=== PATIENT | male | born 1995 | race Caucasian/White ===

== ENCOUNTER 2017-09-20 20:54 | Observation (INO) | payer BC, SELFPAY ==
[2017-09-20 20:57] VITALS: BP 122/65; PULSE 91; RESP 17; TEMP 37.4; O2SAT 98; BMI 19.1
--- NOTE | 2017-09-20 21:30 | CT_ITS ---
STUDY: CT ABDOMEN AND PELVIS WITH CONTRAST REASON FOR EXAM: Male, 21 years old. Right lower quadrant pain RADIATION DOSAGE (If Supplied By Facility): CTDIvol = ( 11.17 ) mGy, DLP = ( 482.70 ) mGycm TECHNIQUE: Transaxial images were obtained from the dome of the diaphragm to the symphysis pubis with oral contrast. 100ML ml of Isovue 300 contrast was administered. Sagittal and coronal images were reconstructed. Individualized dose optimization techniques were used for this CT. COMPARISON: None. FINDINGS: The visualized lung bases are unremarkable. The visualized portions of the heart are within normal limits. Normal liver. Normal gallbladder and extrahepatic biliary system. Normal spleen. Normal pancreas. Normal bilateral adrenal glands. Normal right kidney. Normal left kidney. There is contrast in the stomach. There are mildly distended loops of small bowel within the right lower quadrant. There is a fluid distended appearance of the colon with air-fluid levels. There is mild wall thickening minimal mucosal enhancement of the ascending colon. As a decompressed mildly thick-walled appearance of the rectosigmoid junction. There is a rounded fluid filled appearance of the bowel in the right lower quadrant. The appendix is not seen with certainty. Normal abdominal aorta. Normal inferior vena cava. Normal retroperitoneum. Normal urinary bladder. Normal visualized prostate gland. Normal abdominal wall. Normal osseous structures. CT/Abdomen/Pelvis WITH Contrast IMPRESSION: There is a pattern of fluid filled distended loops of small and large bowel relatively mucosal enhancement in the ascending colon, raising concern for enterocolitis. There is no significant visualized free fluid or inflammation particularly in the right lower quadrant. The appendix is not visualized. No visualized hydronephrosis. Electronically Signed: Marlene Schmid MD at 23:45 EDT Tel , Service support ,
[2017-09-20 21:37] LABS: Bacteria 0 SEEN /hpf (None Seen); Mucous, Urine 0 SEEN /hpf (<or=2+); Red Blood Cells-Urine 0 SEEN /hpf (0-5); Squamous Epithelial Cells - UA 0 SEEN /hpf (0-5); White Blood Cells 0 SEEN /hpf (0-5)
[2017-09-20] MEDS: Morphine 4 MG/ML Syringe IV (21:38)
[2017-09-20 21:39] LABS: Color, Urine Yellow (Yellow); Glucose, Dipstick Normal (Normal); Ketone-Dipstick Negative (Negative); Leukocyte Esterase-Dipstick Negative /ul (Negative); Nitrite-Dipstick Negative (Negative); Occult Blood-Urine Negative /ul (Negative); Protein-Dipstick Negative (Negative); Specific Gravity, Urine 1.015 (1.002-1.030); Urine Bilirubin Dipstick Negative (Negative); Urine Clarity Clear (Clear); Urine Urobilinogen Normal (Normal)
[2017-09-20] MEDS: Ondansetron 4 MG/2 ML Vial IV (21:39)
[2017-09-20 21:44] LABS: Absolute Lymphocyte Count 0.54 X10^3/ul (0.83-4.51); Absolute Neutrophil Count 7.2 X10^3/uL (2.0-7.7); Basophil# 0.01 X10^3/uL; Basophil% 0.1 % (0-1); Eosinophil# 0.17 X10^3/uL; Hematocrit 47.5 % (40-54); Hemoglobin 16.3 g/dl (13.0-16.5); Lymphocyte # 0.54 X10^3/ul (4.0); Lymphocyte % 6.5 % (19-41); Mean Corp Hgb Conc 34.3 g/gl (32-36); Mean Corpuscular Hgb 29.9 pg (27.0-32.0); Mean Platelet Vol. 10.2 fl (6.2-12.0); Monocyte# 0.47 X10^3/uL; Monocyte% 5.6 % (0-10); Neutrophil # 7.17 X10^3/uL (2.7-7.7); Neutrophil % 85.7 % (47-70); Platelet Count 192 K/mm3 (150-450); RBC Distribution Width SD 40.9 fl (35.1-43.9); Red Blood Count 5.46 M/mm3 (4.6-6.2); White Blood Count 8.4 K/mm3 (4.4-11.0)
[2017-09-20 21:48] LABS: Differential Indicated SCAN CRITERIA MET; POSITIVE COUNT NO; POSITIVE DIFFERENTIAL YES; POSITIVE MORPHOLOGY NO
[2017-09-20 22:07] LABS: Differential Comment SCANNED
[2017-09-20 22:10] LABS: ALB/GLOB Ratio 1.2 RATIO (0.9-2.4); AST(SGOT) 27 U/L (15-37); Alanine Aminotransfer ALT/SGPT 25 U/L (16-61); Albumin, Serum 4.5 g/dL (3.2-5.0); Alkaline Phosphatase 73 U/L (45-117); Anion Gap 4 (5-15); BUN 15 mg/dL (7-18); BUN/Creat Ratio 14.3 RATIO (10-20); Calcium,Total 9.3 mg/dL (8.5-10.1); Chloride 103 mmol/L (98-107); Creatinine, Serum 1.05 mg/dL (0.70-1.30); EST Glomerular Filtration Rate 96 mL/min (>60); Est Glom Filt Rate - Afr Amer 116 mL/min (>60); Globulin 3.6 g/dL (2.2-4.2); Glucose 90 mg/dL (74-106); Protein, Total 8.1 g/dL (6.4-8.2); Sodium Level 138 mmol/L (136-145)
[2017-09-20 22:22] VITALS: BP 117/76; PULSE 80; RESP 16; O2SAT 98
[2017-09-20] MEDS: fentaNYL 100 MCG/2 ML Ampul 50 MCG IV (22:30)
--- NOTE | 2017-09-20 23:19 | ED.VISSUMM ---
- ER Visit Summary Date of Service: 09/20/17 Chief Complaint: Abdominal pain History of Present Illness: The patient is a 21 M who presents with abdominal pain. Started today. It started sharp around his periumbilical area and then migrated to his right lower quadrant. He has had nausea without vomiting. No diarrhea or constipation. He tried ibuprofen without any relief. Denies urinary symptoms. He has never had any abdominal surgeries in the past. Physical Examination: Vital signs reviewed. HEENT exam unremarkable. Heart is regular rate and rhythm without murmurs. Lungs are clear to auscultation. Abdomen is soft tenderness in the right lower quadrant. Positive Rovsing sign. Positive McBurney's. Extremities reveal no edema. Skin exam normal. Neurologic exam normal. Test Results: Laboratory studies show a normal white blood cell count but there is a left shift. CAT scan of the abdomen pelvis with p.o. and IV contrast shows dilated loops of small and large bowel. There is mucosal enhancement of the ascending colon. The appendix cannot be visualized Emergency Department Course and Treatment: She was medicated with morphine and Zofran. His pain returned after drinking the oral contrast that he was given 50 mcg of fentanyl. Treatment Plan: I discussed this with Dr. Vidal. She will come in and evaluate the patient to decide whether to take the surgery Disposition: Pending Impression: Clinical appendicitis This note was generated with [employer] dictation software. It may contain incorrect words, spelling, and punctuation that were not noted in review of the chart prior to signing ED Disposition - Plan for ED Patient: Chief Complaint: Abd Pain Referrals: Hari Cohen MD [Primary Care Provider] -
[2017-09-21] VITALS (8 sets, daily range): BP systolic 94–125; BP diastolic 52–72; PULSE 52–80; RESP 16–18; TEMP 36.7–37.3; O2SAT 95–100; BMI 19.1; BMI 20.4
--- NOTE | 2017-09-21 01:01 | HP.PCM_ITS ---
History and Physical Date of Admission: 09/21/17 Chief Complaint: abdominal pain History of Present Illness: 21 y/o WM presents with sudden onset of right sided abdominal pain beginning early this morning. States that it initially started in the periumbilical area, but now mostly in the right lower quadrant of the abdomen. Has nausea, no emesis. Denies fevers. Denies diarrhea or constipation. Trial of ibuprofen with no relief. Had episode of abdominal pain a few weeks ago, but it spontaneously resolved and was not as severe. WBC is normal, but there is a left shift of the differential with 85.7% segs. CT scan - mildly distended loops of small bowel within the right lower quadrant , fluid distended appearance of the colon with air fluid levels, mild wall thickening minimal mucosal enhancement of the ascending colon, decompressed mildly thick-walled appearance of the rectosigmoid junction, rounded fluid filled appearance of the bowel in the right lower quadrant, appendix is not seen with certainty Past Medical History: denies major medical illnesses Past Surgical History: denies Past Injuries: denies head injuries, has rotator cuff injury, had foot fracture in past Medications: denies taking chronic medications Allergies: augmentin - rash Social history: TOB use denies Review of Systems: General - denies fevers Cardiovascular denies chest pain, denies heart problems Pulmonary denies shortness of breath, denies coughing up blood Gastrointestinal as per HPI, denies blood in stools Neurological denies numbness/weakness of extremities, denies seizures Genitourinary denies burning with urination, denies blood in urine Hematological denies spontaneous/prolonged bleeding Skin denies open non healing wounds Musculoskeletal had foot fracture in past, will have rotator cuff surgery in near future Endocrine denies diabetes Psychological denies hallucinations Physical examination: Vital signs Temp 99.3F HR 79 RR 16 BP 122/65 General WD/WN WM in no apparent distress, alert and oriented, not septic appearing HEENT Normocephalic. EOM intact with sclera clear and no icterus noted. Neck is supple with no jugular venous distention noted. Trachea is midline. Lungs clear to auscultation. normal breath sounds in all lung schaefer. No rales/rhonchi/wheezing noted. No labored breathing noted, such as retractions. Heart normal S1 and S2 auscultated. No rubs/clicks/murmurs noted. Normal size and location by auscultation. Abdomen soft but generalized tenderness, however, primarily tender in the right lower quadrant and periumbilical area, hypoactive bowel sounds Extremities no calf tenderness noted. No pitting edema noted. Genitourinary/Rectal deferred Skin normal skin integrity. Neurological non focal Psychological normal affect, patient is calm and appropriate Impression: right lower quadrant abdominal pain left shift of differential Discussion/Plan: I have discussed the above with the patient and his mother and father who is present with him. The patient has signs/symptoms of appendicitis and a left shift of the differential, however, the CT scan demonstrates that the appendix cannot be visualized. The diagnosis of appendicitis is equivocal at this point. I have offered the patient the procedure of laparoscopic appendectomy. There is the possibility of removing a normal appendix, the patient and his family accept this. I have explained the procedure to the patient. I have counseled the patient as to the risks of the procedure, including but not limited to: infection, bleeding, injury to any blood vessels/nerves, scar tissue, injury to any intraabdominal organs, injury to kidney/ureters, injury to bowel/bladder, intraabdominal abscess/bleeding, hernias at incisional sites, wound infections, possible open procedure, complications of anesthesia, postoperative pneumonia/cardiac problems/blood clots etc. the patient understands. He wishes to proceed. I have answered all questions to the patient?s satisfaction and the patient has no further questions.
--- NOTE | 2017-09-21 02:30 | APP_PTH ---
PATIENT: WILLIAM SLOAN LOC: MS2 U#:[id number] AGE/SX: 21/M ROOM: MS219 RE09/21/[address]: Dr. Tayla Vidal MD : 1995 BED: 1 DIS: 09/21/2017 SPEC #: [id number] RECD: 09/21/17 10:51 STATUS: EZEQUIEL REQ #: [id number] JONATHAN: 09/21/17 02:[address]: Tayla Vidal DEPT: SURGICAL PATHOLOGY RECD BY: Carlitos Graff ENTERED: 09/21/17 13:35 SP TYPE: APPENDIX OTHR DR: Dr. Hari Cohen MD Tissues: Appendix, NOS Procedures: Surgery Specimen Level III HEADER OPERATION: Laparoscopic appendectomy PRE-OP DIAGNOSIS: Right lower quadrant pain TISSUE SUBMITTED: Appendix MICROSCOPIC DIAGNOSIS Appendix, appendectomy: Appendix, no pathologic diagnosis. See comment. BARRERA:negro 09/22/17 COMMENT The entire is submitted. There is no evidence of acute inflammation in the lumen or appendicular wall. MICROSCOPIC DESCRIPTION Slides are reviewed. GROSS DESCRIPTION Received is one container labeled with the patient's name and designated appendix. The specimen consists of a vermiform appendix measuring 5.5 cm in length and 1 cm in average diameter. No gross perforations are evident. Serial sections reveal a patent lumen. [employer] sections are submitted in one cassette. / AM:negro 09/21/17 The rest of the specimen is submitted in three more cassettes, 2-4. / SJ:negro 09/22/17 TC:4 CPT: 25842
--- NOTE | 2017-09-21 02:32 | PCM.IMDPSTOP ---
Immediate Post-Op Note Date of Procedure: 09/21/17 Primary Surgeon/Physician: Tayla Vidal traffic analysis technician: NOT,DEFINED Pre-Operative Diagnosis: right lower quadrant abdominal pain Post-Operative Diagnosis: same Surgery/Procedure Performed:: laparoscopic appendectomy Description of Surgical Findings:: injected appendix, no evidence of perforation, mesenteric adenitis Estimated Blood Loss: < 5 ml Specimen's removed: appendix Type of Anesthesia:: General ASA Class: ASA1 Plus Emergency - Admit VTE Documentation VTE Present on Admission: Yes VTE Mechan Device Prophylaxis: SCD's
--- NOTE | 2017-09-21 02:35 | OP.PN_ITS ---
Immediate Post-Op Note Date of Procedure: 09/21/17 Primary Surgeon/Physician: Tayla Vidal major gifts director: NOT,DEFINED Pre-Operative Diagnosis: right lower quadrant abdominal pain Post-Operative Diagnosis: same Surgery/Procedure Performed:: laparoscopic appendectomy Description of Surgical Findings:: injected appendix, no evidence of perforation, mesenteric adenitis Estimated Blood Loss: < 5 ml Specimen's removed: appendix Type of Anesthesia:: General ASA Class: ASA1 Plus Emergency - Admit VTE Documentation VTE Present on Admission: Yes VTE Mechan Device Prophylaxis: SCD's
--- NOTE | 2017-09-21 02:37 | DCINST_ITS ---
Discharge Diet: No Restrictions - drink plenty of fluids avoid carbonated beverages for a couple of days Discharge Activity: Return to Normal Activity, May not drive while taking narcotic pain medications. Return to work on:: 10/06/17 Lifting Restrictions: no lifting greater than 20 pounds for 2 weeks Call your doctor if your incision/area has: Continuous Slow Oozing, Foul Smelling Discharge Call your doctor if you observe: Fever of 101 or Higher Additional Dressing/Incision Instructions:: Leave dressings in place. May get wet in shower. Do not soak - no tub baths/swimming Additional Instructions: Take narcotic pain meds for moderate to severe pain only, may use ibuprofen 600 mg every 6 hours also Allergies/Adverse Reactions: Allergies amoxicillin trihydrate [From Augmentin] Allergy (Verified 09/20/17 20:56) Rash potassium clavulanate [From Augmentin] Allergy (Verified 09/20/17 20:56) Rash Primary Care Physician: Hari Cohen MD [Primary Care Provider] - Test Results: Test results from this visit will be discussed in further detail at your follow- up appointment, if applicable. Please Follow Up With: Tayla Vidal MD - call When: to be seen in 7-10 days, please call for date and time, thank you
[2017-09-21] MEDS: Bupiv/Epi 0.5% Mpf 30 ML Vial (03:08)
--- NOTE | 2017-09-21 03:18 | OP.PCM_ITS ---
Report of Operation Date of Procedure: 09/21/17 Pre-Operative Diagnosis: right lower quadrant abdominal pain Post-Operative Diagnosis: same Surgery/Procedure Performed:: laparoscopic appendectomy Description of Surgical Findings:: injected appendix, no evidence of perforation, mesenteric adenitis search engine optimization analyst: NOT,DEFINED Type of Anesthesia:: General Anesthesiologist: Juice Mcclure Specimen's removed: appendix Estimated Blood Loss (mL): < 5 ml Fluids Replaced: 500 ml RL Description of Procedure: After informed consent was obtained, the patient was brought into the operating room and placed in the supine position on the operating table. Appropriate time out protocol was followed. The patient was then placed under general anesthesia. The patient?s abdomen was then prepped with a sterile surgical skin preparation and sterile surgical drapes were placed. The infraumbilical skin fold was grasped with penetrating clamps and the skin and subcutaneous tissues were infiltrated with local anesthetic. A skin incision was then made. A Veress needle was then inserted into the intraabdominal cavity and checked to be in the proper position with a normal saline drop test. A CO2 pneumoperitoneum was then created. Once this was achieved, the Veress needle was removed and a 5 mm trocar was placed in its stead. A 5 mm laparoscope was then inserted into the trocar. Careful examination of the intraabdominal contents was then done. There was no evidence of injury to any internal organs from placement of the Veress needle or the trocar. Under direct visualization, a 12mm suprapubic trocar and a 5mm left lower quadrant trocar was then placed into the intraabdominal cavity. The skin and subcutaneous tissues at these sites were first infiltrated with local anesthetic. Attention was then directed to the right lower quadrant. The appendix was visualized. It appeared slight dilated but grossly normal. There was no evidence of perforation or fibrinous exudate. The mesentery of the appendix was taken down by cauterizing the tissue from the free edge to the base of the appendix with the Harmonic scalpel. Once the base of the appendix was freed of surrounding tissues, then the linear gastrointestinal stapling device was brought into the abdominal cavity via the 12mm port and placed across the base of the appendix. The stapling device was fired, thus stapling across the base of the appendix and transecting it simultaneously. The appendix was then placed in an Endobag and this was brought out through the suprapubic trocar. The appendix was then forwarded to Pathology for analysis. The appendiceal stump was carefully examined. There was no evidence of any active bleeding or fecal leakage. THere was some minimal inflammatory clear fluid in the pelvis. The surrounding tissues were also examined and there was no evidence of any active bleeding or fecal/bile leakage. The mesentary of the bowel was examined. There were enlarged mesenteric lymph nodes noted. The intraabdominal cavity was examined and there was no evidence of further inflammation or tissue abnormality. The CO2 pneumoperitoneum was released and all trocars were removed intact. The suprapubic fascia was reapproximated with a figure-of-8 vicryl suture. All skin incisions were reapproximated with monocryl suture. Cavilon and steristrips were applied to reinforce skin closure and proper sterile dressings were placed. The patient was then extubated and brought to the Recovery Room in stable condition. - Complications none noted - Admit VTE Documentation VTE Present on Admission: Yes VTE Mechan Device Prophylaxis: SCD's
[2017-09-21] MEDS: Ketorolac 30 MG/ML Syringe IV ×2 (03:37→12:39)
[2017-09-21] MEDS: Lactated Ringers 1,000 ML 125 ML IV (10:32)
[2017-09-21] MEDS: HYDROcodone Bitartrate/Apap 5/325 Tablet PO ×2 (10:39→15:39)
[2017-09-21] MEDS: 0.9% NaCl Peripheral Flush Adult/Peds IV (12:39)
--- NOTE | 2017-09-21 12:47 | NURSING ---
Pt denies urge to urinate, bladder scan showed 247, Dr Vidal informed, no new orders given. She said she would put in a discharge order.
== END 2017-09-21 15:50 | disposition home or self-care (01) ==
LOC: ED 21:58 → SDC 09-21 00:44 → MS2 09-21 07:06
PROVIDERS: Admitting Provider Surgery; Emergency Provider Emergency Medicine; Family Provider Pediatrics; PCP Pediatrics; Visit Provider Surgery
PROC: 0DTJ4ZZ Resection of Appendix, Percutaneous Endoscopic Approach (ICD-10-PCS; CPT 44970; principal; 2017-09-21 02:30)
DX: I88.0 Nonspecific mesenteric lymphadenitis (principal); F17.200 Nicotine dependence, unspecified, uncomplicated; R10.31 Right lower quadrant pain
CPT/HCPCS: 00840; 44970; 74177; 80053; 81001; 85025; 88304; 96361; 96365; 96375; 99218; 99284; J7030; J7120; Q9967; A4216; G0378; J2405

== ENCOUNTER 2018-08-26 11:09 | Emergency (ER) | payer BC, SELFPAY ==
[2018-08-26 11:09] VITALS: BP 125/82; PULSE 62; RESP 16; TEMP 36.7; O2SAT 100; BMI 20.9
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
[2018-08-26] MEDS: Lidocaine/Epi/Tetracaine 50 ML 1 APPLIC TOPICAL (11:50)
--- NOTE | 2018-08-26 12:26 | ED.DCSUM_ITS ---
- ER Visit Summary Date of Service: 08/26/18 Chief Complaint: Chin laceration History of Present Illness: The patient is a 22 M who was helping to carry a [employer] cabinet when he was hit jaw. He notes a chin laceration a fracture of his lower right tooth and jaw pain. He states he felt his mandible pop on the left and points to the angle of the mandible. No loss of consciousness. Unknown last tetanus Physical Examination: Afebrile vital signs are stable Gen: Well-nourished well-developed Head: Normocephalic Eyes: Perrl EOMI ENT: TMs clear no rhinorrhea moist mucous membranes there is a 1 cm highly irregular chin laceration in the submental area. There is an Stoddard 1 fracture of the lower right premolar. There is tenderness at the angle of the left mandible Neck: Supple no lymphadenopathy no JVD nontender CVS: Regular rate rhythm no murmurs normal S1-S2 Respiratory: No distress clear to auscultation bilaterally chest nontender Abdomen: Soft nontender nondistended normal bowel sounds no masses Back: Nontender Extremity: Nontender no edema Skin: Normal color no rash Neuro: alert orientated ?3 CN II-XII intact normal strength sensation reflexes gait cerebellar Psych: Normal affect normal mood Test Results: CT the facial bones did not demonstrate any fracture of the bones. Emergency Department Course and Treatment: Wound was locally anesthetized and then washed with Shur-Clens and explored. It was closed using a total of 2 simple interrupted 5-0 Ethilon sutures. Tetanus was updated with Adacel. Wound care discussed with patient I encouraged dental follow-up Impression: 1. 1 cm chin laceration with repair 2. Tetanus update 3. Stoddard 1 fracture of the lower right premolar This note was generated with [employer] dictation software. It may contain incorrect words, spelling, and punctuation that were not noted in review of the chart prior to signing ED Disposition - Plan for ED Patient: Disposition: Home or Assisted Living Instructions: Dental Trauma, Laceration, Chin, Suture or Tape Referrals: Hari oChen MD [Primary Care Provider] - 7 Days for suture removal Additional Instructions: Please make appointment with your dentist
[2018-08-26 13:17] VITALS: BP 117/76; PULSE 64; RESP 16; O2SAT 98
--- NOTE | 2018-08-26 13:19 | ED.RN ---
REVIEWED D/C INSTRUCTIONS, FOLLOW UP CARE, AND S/S THAT WOULD WARRANT A RETURN TO THE ED WITH PT. PT VERBALIZED AN UNDERSTANDING AND DENIES FURTHER QUESTIONS FOR THIS RN. PT SKIN P/W/D, RESP EVEN AND UNLABORED, PT A&O X 3, NO DISTRESS NOTED. PT AMBULATED OUT OF ED, GAIT STEADY.
== END 2018-08-26 13:20 | disposition home or self-care (01) ==
PROVIDERS: Emergency Provider Emergency Medicine; Family Provider Pediatrics; PCP Pediatrics
DX: S01.81XA Laceration without foreign body of other part of head, initial encounter (principal); S02.5XXA Fracture of tooth (traumatic), initial encounter for closed fracture; R40.2410 Glasgow coma scale score 13-15, unspecified time; W22.8XXA Striking against or struck by other objects, initial encounter; Y93.9 Activity, unspecified; Y92.9 Unspecified place or not applicable; Z23 Encounter for immunization; Z72.0 Tobacco use
CPT/HCPCS: 12011; 70486; 99283

== ENCOUNTER 2019-09-14 13:56 | Emergency (ER) | payer BC, SELFPAY ==
[2019-09-14 13:58] VITALS: BP 157/87; PULSE 79; RESP 16; TEMP 36.9; O2SAT 100; BMI 21.7
[2019-09-14] MEDS: Ondansetron 4 MG/2 ML Vial IV (14:13)
[2019-09-14] MEDS: morphine 8 MG/ML Syringe IV (14:13)
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
[2019-09-14] MEDS: 0.9% Normal Saline 1,000 ML 1000 ML IV (14:20)
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
[2019-09-14 14:35] LABS: Hematocrit 42.1 % (40-54); Mean Corp Hgb Conc 33.3 g/dL (32-36); Mean Corpuscular Hgb 29.5 pg (27.0-32.0); Mean Corpuscular Volume 88.6 fL (80-94); Mean Platelet Vol. 9.4 fl (6.2-12.0); Platelet Count 217 K/mm3 (150-450); RBC Distribution Width SD 42.5 fl (35.1-43.9); Red Blood Count 4.75 M/mm3 (4.6-6.2); White Blood Count 10.7 K/mm3 (4.4-11.0)
[2019-09-14] MEDS: fentaNYL 100 MCG/2 ML Ampul 50 MCG IV ×3 (14:41→15:32)
[2019-09-14 14:43] LABS: International Normalized Ratio 1.1; Prothrombin Time (Protime)PT. 13.5 SECONDS (11.7-14.9)
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
[2019-09-14 14:48] LABS: Anion Gap 5 (5-15); BUN 15 mg/dL (7-18); BUN/Creat Ratio 15.6 RATIO (10-20); Calcium,Total 8.2 mg/dL (8.5-10.1); Chloride 107 mmol/L (98-107); Creatinine, Serum 0.96 mg/dL (0.70-1.30); EST Glomerular Filtration Rate 104 mL/min (>60); Est Glom Filt Rate - Afr Amer 126 mL/min (>60); Estimated Creatinine Clearance 128.43 ml/min; Glucose 144 mg/dL (74-106); Potassium 3.5 mmol/L (3.5-5.1); Sodium Level 139 mmol/L (136-145)
[2019-09-14] MEDS: Cefazolin 1 GM/50 ML BAG IV (14:55)
[2019-09-14 15:00] VITALS: BP 125/63; PULSE 56; RESP 14; O2SAT 100
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
[2019-09-14] MEDS: Diphth,Pertuss(Acell),Tet Vac 0.5 ML Vial IM (15:32)
[2019-09-14 15:43] VITALS: BP 140/88; PULSE 65; RESP 18; O2SAT 97
== END 2019-09-14 15:45 | disposition short-term general hospital (02) ==
PROVIDERS: Emergency Provider Emergency Medicine; PCP Pediatrics
DX: S82.52XB Displaced fracture of medial malleolus of left tibia, initial encounter for open fracture type I or II (principal); S62.232A Other displaced fracture of base of first metacarpal bone, left hand, initial encounter for closed fracture; S80.212A Abrasion, left knee, initial encounter; S50.812A Abrasion of left forearm, initial encounter; S60.512A Abrasion of left hand, initial encounter; S91.332A Puncture wound without foreign body, left foot, initial encounter; V23.4XXA Motorcycle driver injured in collision with car, pick-up truck or van in traffic accident, initial encounter; Y93.9 Activity, unspecified; Y92.9 Unspecified place or not applicable; Z72.0 Tobacco use
CPT/HCPCS: 70450; 71045; 73130; 73600; 74177; 80048; 85027; 85610; 90715; 96365; 96374; 96375; 96376; 99285; J7030; Q9967; A4216; J2405

== ENCOUNTER 2019-09-27 00:49 | Emergency (ER) | payer BC, SELFPAY ==
[2019-09-27 00:50] VITALS: BP 145/91; PULSE 121; RESP 18; TEMP 37.4; O2SAT 100; BMI 20.3
[2019-09-27] MEDS: Morphine 4 MG/ML Syringe IV (01:08)
[2019-09-27 01:40] VITALS: BP 142/97; PULSE 98; RESP 18; O2SAT 98
[2019-09-27] MEDS: HYDROmorphone 1 MG/ML Syringe IV ×3 (01:40→03:19)
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
[2019-09-27 02:40] VITALS: BP 158/91; PULSE 103; RESP 18; O2SAT 99
[2019-09-27] MEDS: LORazepam 2 MG/ML Syringe 0.5 MG IV (03:19)
[2019-09-27 03:44] VITALS: BP 143/96; PULSE 92; RESP 18; O2SAT 99
== END 2019-09-27 03:59 | disposition home or self-care (01) ==
PROVIDERS: Emergency Provider Emergency Medicine; PCP Pediatrics
DX: G89.18 Other acute postprocedural pain (principal); M25.572 Pain in left ankle and joints of left foot; F17.200 Nicotine dependence, unspecified, uncomplicated
CPT/HCPCS: 96374; 96375; 96376; 99283; A4216

== ENCOUNTER 2019-10-20 03:35 | Emergency (ER) | payer BC, SELFPAY ==
[2019-10-20 03:37] VITALS: BP 132/90; PULSE 91; RESP 16; TEMP 36.8; O2SAT 100; BMI 18.4
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
[2019-10-20] MEDS: HYDROcodone Bitartrate/Apap 5/325 Tablet PO (04:43)
[2019-10-20] MEDS: Ondansetron ODT 4 MG Tablet PO (04:43)
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
[2019-10-20 05:35] LABS: Absolute Lymphocyte Count 1.12 X10^3/uL (0.83-4.51); Absolute Neutrophil Count 3.6 X10^3/uL (2.0-7.7); Basophil# 0.04 X10^3/uL; Basophil% 0.7 % (0-1); Eosinophil# 0.15 X10^3/uL; Eosinophils% 2.8 % (0-5); Hematocrit 39.6 % (40-54); Hemoglobin 12.3 g/dL (13.0-16.5); Lymphocyte # 1.12 X10^3/ul (4.0); Lymphocyte % 20.6 % (19-41); Mean Corp Hgb Conc 31.1 g/dL (32-36); Mean Corpuscular Volume 86.8 fL (80-94); Monocyte# 0.57 X10^3/uL; Monocyte% 10.5 % (0-10); NRBC Flagged by Analyzer 0 % (0-5); Neutrophil # 3.56 X10^3/uL (2.7-7.7); Neutrophil % 65.2 % (47-70); Platelet Count 339 K/mm3 (150-450); RBC Distribution Width CV 12.7 % (11.6-14.6); RBC Distribution Width SD 40.8 fl (35.1-43.9); Red Blood Count 4.56 M/mm3 (4.6-6.2); White Blood Count 5.5 K/mm3 (4.4-11.0)
[2019-10-20] MEDS: Morphine 4 MG/ML Syringe IV ×3 (05:38→12:42)
[2019-10-20 05:39] LABS: Erythrocyte Sedimentation Rate 3 mm/hr (0-15)
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
[2019-10-20 05:57] LABS: Anion Gap 4 (5-15); BUN 11 mg/dL (7-18); BUN/Creat Ratio 11.4 RATIO (10-20); CRP < 2.90 mg/L (0.0-3.0); Calcium,Total 9.5 mg/dL (8.5-10.1); Chloride 101 mmol/L (98-107); Creatinine, Serum 0.96 mg/dL (0.70-1.30); EST Glomerular Filtration Rate 104 mL/min (>60); Est Glom Filt Rate - Afr Amer 126 mL/min (>60); Estimated Creatinine Clearance 109.33 ml/min; Glucose 100 mg/dL (74-106); Potassium 3.9 mmol/L (3.5-5.1); Sodium Level 138 mmol/L (136-145)
[2019-10-20 09:36] VITALS: RESP 16
[2019-10-20] MEDS: oxyCODONE 5 MG Tablet PO (09:38)
[2019-10-20 12:48] VITALS: BP 119/76; PULSE 52; RESP 16; O2SAT 97
== END 2019-10-20 12:48 | disposition home or self-care (01) ==
PROVIDERS: Emergency Provider Emergency Medicine; PCP Pediatrics
DX: M79.672 Pain in left foot (principal); Z98.890 Other specified postprocedural states; S92.002D Unspecified fracture of left calcaneus, subsequent encounter for fracture with routine healing; V89.2XXD Person injured in unspecified motor-vehicle accident, traffic, subsequent encounter
CPT/HCPCS: 73610; 73718; 80048; 85025; 85652; 86140; 96374; 96376; 99284; A4216